=== PATIENT | male | born 1940 | race Caucasian/White ===

== ENCOUNTER 2020-02-29 14:38 | Emergency (ER) | payer MEDICARE, OTHER ==
--- NOTE | 2020-02-29 15:04 | ED ---
Head Injury HPI - General Chief complaint: Head Injury Stated complaint: Fall,Head Lac Time Seen by Provider: 02/29/20 14:46 Source: patient, family Mode of arrival: wheelchair Limitations: no limitations - History of Present Illness Initial comments: Patient is a 79-year-old male presenting to the emergency room with a chief complaint of head injury. Patient states he was sitting in the shower on a stool. Patient states he leaned forward to grab the soap when he lost his balance and fell to the floor, headfirst. Patient reports there is a laceration on the frontoparietal aspect of the head. Patient denies loss of consciousness. Denies any blood thinners. Denies any headaches, blurry vision, one-sided weakness or paresthesias. States his tetanus is not up-to-date. Denies any dizziness or lightheadedness at this time. Denies any chest pain or shortness of breath. Patient reports history of poor renal function. - Related Data Home Medications Medication Instructions Recorded Confirmed Beta-Carotene (Unknown Strength) 1 tab PO DAILY 02/29/20 02/29/20 Blood Pressure Med (Unknown 1 tab PO DAILY 02/29/20 02/29/20 Name/Strength) Fenofibrate (Unknown Strength) 1 tab PO DAILY 02/29/20 02/29/20 Irbesartan (Unknown Strength) 1 tab PO DAILY 02/29/20 02/29/20 Allergies/Adverse reactions: Allergies Allergy/AdvReac Type Severity Reaction Status Date / Time No Known Allergies Allergy Verified 02/29/20 16:10 Review of Systems ROS Statement: Those systems with pertinent positive or pertinent negative responses have been documented in the HPI. ROS Other: All systems not noted in ROS Statement are negative. Past Medical History Past Medical History: Hypertension, Osteoarthritis (OA) History of Any Multi-Drug Resistant Organisms: None Reported Past Surgical History: Orthopedic Surgery Additional Past Surgical History / Comment(s): L shoulder Past Psychological History: No Psychological Hx Reported Smoking Status: Never smoker Past Alcohol Use History: None Reported Past Drug Use History: None Reported General Exam Limitations: no limitations General appearance: alert, in no apparent distress Head exam: Present: normocephalic. Absent: atraumatic (5 cm laceration on the frontoparietal aspect of the head.), normal inspection, other (Negative Flores sign, hemotympanum, raccoon eyes.) Eye exam: Present: normal appearance, PERRL, EOMI. Absent: scleral icterus Pupils: Present: normal accommodation ENT exam: Present: normal exam, normal oropharynx, mucous membranes moist Neck exam: Present: normal inspection, full ROM. Absent: tenderness Respiratory exam: Present: normal lung sounds bilaterally. Absent: respiratory distress, wheezes, rales Cardiovascular Exam: Present: regular rate, normal rhythm, normal heart sounds Extremities exam: Present: normal inspection, full ROM, normal capillary refill, other (+2 ulnar and radial pulses bilateral. Sensation intact in bilateral upper and lower extremities. +2 dorsalis pedis and posterior tibialis bilaterally.) Back exam: Present: normal inspection, full ROM. Absent: tenderness Neurological exam: Present: alert, oriented X3, CN II-XII intact Psychiatric exam: Present: normal affect, normal mood Skin exam: Present: warm, dry, intact, normal color Course Vital Signs 02/29/20 14:42 Temperature 97.8 F Pulse Rate 81 Respiratory 18 Rate Blood Pressure 157/93 O2 Sat by Pulse 97 Oximetry Procedures - Laceration Laceration #1 Consent Obtained: verbal consent Indication: laceration Site: scalp Size (cm): 6 Description: linear, clean Depth: simple, single layer Sedation/Analgesia: none Pre-repair: irrigated extensively, deep structures intact Type of Sutures: other ([facility]) Size of Sutures: other ([facility]) Number of Sutures: 6 Technique: other ([facility]) Complications: pain Patient Tolerated Procedure: well, no complications Medical Decision Making - Medical Decision Making Patient is a 79-year-old male presenting to emergency Department with chief complaint of a head injury. Patient has a 6 cm laceration on the frontoparietal aspect. Laceration site was repaired with 6 [facility]. Patient advised to return to emergency department in 10-14 days for suture removal. CMP reveals poor renal function with BUN 30 and creatinine of 3. Patient does have history of poor renal function. Brain and C-spine CT reveals no acute fractures, dislocations, intracranial hemorrhage or midline shift. Patient is also had mild hematoma near the site of head trauma. Patient was given analgesia in the ED. Patient is set to see his primary care in 4 days. Return parameters were thoroughly discussed with patient was understanding and agreeable. Case discussed with physician. - Lab Data Result diagrams: 02/29/20 15:37 02/29/20 15:37 Lab Results 02/29/20 02/29/20 02/29/20 Range/Units 15:37 15:37 15:37 WBC 8.1 (3.8-10.6) k/uL RBC 4.33 (4.30-5.90) m/uL Hgb 13.5 (13.0-17.5) gm/dL Hct 41.7 (39.0-53.0) % MCV 96.1 (80.0-100.0) fL MCH 31.1 (25.0-35.0) pg MCHC 32.3 (31.0-37.0) g/dL RDW 13.2 (11.5-15.5) % Plt Count 235 (150-450) k/uL Neutrophils % 69 % Lymphocytes % 18 % Monocytes % 7 % Eosinophils % 5 % Basophils % 0 % Neutrophils # 5.6 (1.3-7.7) k/uL Lymphocytes # 1.4 (1.0-4.8) k/uL Monocytes # 0.5 (0-1.0) k/uL Eosinophils # 0.4 (0-0.7) k/uL Basophils # 0.0 (0-0.2) k/uL PT 12.0 (9.0-12.0) sec INR 1.2 H (<1.2) Sodium 135 L (137-145) mmol/L Potassium 4.3 (3.5-5.1) mmol/L Chloride 107 (98-107) mmol/L Carbon Dioxide 20 L (22-30) mmol/L Anion Gap 8 mmol/L BUN 32 H (9-20) mg/dL Creatinine 1.54 H (0.66-1.25) mg/dL Est GFR (CKD-EPI)AfAm 49 (>60 ml/min/1.73 sqM) Est GFR (CKD-EPI)NonAf 43 (>60 ml/min/1.73 sqM) Glucose 108 H (74-99) mg/dL Calcium 9.4 (8.4-10.2) mg/dL Total Bilirubin 0.4 (0.2-1.3) mg/dL AST 27 (17-59) U/L ALT 15 (4-49) U/L Alkaline Phosphatase 72 (38-126) U/L Total Protein 6.3 (6.3-8.2) g/dL Albumin 3.6 (3.5-5.0) g/dL Disposition Clinical Impression: Head injury, Laceration, Contusion of scalp, Hematoma of scalp Disposition: HOME SELF-CARE Condition: Stable Instructions (If sedation given, give patient instructions): Laceration (DC), Staple Care (ED) Additional Instructions: Return to emergency department in 10-14 days for suture removal. Follow-up with your primary care. Return to emergency department if symptoms worsen. Is patient prescribed a controlled substance at d/c from ED?: No Referrals: Eduard Jacobs MD [Primary Care Provider] - 1-2 days Time of Disposition: 16:25
[2020-02-29] MEDS ORDERED: DIPH,PERTUS(ACELL)TETVAC-LF 0.5 ML VIAL IM ONE (15:07)
[2020-02-29 15:53] LABS: Basophils % (A) 0 %; Eosinophils # (A) 0.4 k/uL (0-0.7); Eosinophils % (A) 5 %; HCT 41.7 % (39.0-53.0); HGB 13.5 gm/dL (13.0-17.5); Lymphocytes # (A) 1.4 k/uL (1.0-4.8); Lymphocytes % (A) 18 %; MCH 31.1 pg (25.0-35.0); MCHC 32.3 g/dL (31.0-37.0); MCV 96.1 fL (80.0-100.0); Mean Platelet Volume 8.3; Monocytes # (A) 0.5 k/uL (0-1.0); Monocytes % (A) 7 %; Neutrophils # (A) 5.6 k/uL (1.3-7.7); Neutrophils % (A) 69 %; Platelet Count 235 k/uL (150-450); RBC 4.33 m/uL (4.30-5.90); RDW 13.2 % (11.5-15.5); WBC 8.1 k/uL (3.8-10.6)
--- NOTE | 2020-02-29 15:53 | CT ---
EXAMINATION TYPE: CT brain mode mckeon con DATE OF EXAM: 02/29/2020 COMPARISON: None HISTORY: Fall with head laceration. Neck pain. Headache. CT DLP: 1587.2 mGycm Automated exposure control for dose reduction was used. There is cerebral cortical atrophy. There is no mass effect nor midline shift. There is no sign of in tracranial hemorrhage. The calvarium is intact. There is no evidence of cerebral edema. There is some right frontal scalp soft tissue swelling. There is moderately severe multilevel spondylotic changes in the cervical spine with hypertrophic spu rring of the endplates. The posterior elements are intact. Skull base is intact. Temporal bones appea r normal. There is no evidence of cervical spine fracture. IMPRESSION: Cerebral atrophy. No acute intracranial abnormality. Moderate multilevel cervical spondylotic changes. No fracture seen.
[2020-02-29 15:56] LABS: INR 1.2 (<1.2)
[2020-02-29 16:01] LABS: Albumin 3.6 g/dL (3.5-5.0); Calcium 9.4 mg/dL (8.4-10.2); Potassium 4.3 mmol/L (3.5-5.1); Total Bilirubin 0.4 mg/dL (0.2-1.3); Total Protein 6.3 g/dL (6.3-8.2)
[2020-02-29] MEDS ORDERED: ACET/COD 300 MG/30 MG STARTER PACK 6 TAB BTL PO STA (16:24)
[2020-02-29 16:43] VITALS: BP 163/78; PULSE 77; RESP 20; TEMP 98.2
== END 2020-02-29 16:35 | disposition home or self-care (01) ==
LOC: EC 14:38
DX: S01.01XA Laceration without foreign body of scalp, initial encounter (principal); Z23 Encounter for immunization; I10 Essential (primary) hypertension; Z79.899 Other long term (current) drug therapy; Z98.890 Other specified postprocedural states; W01.10XA Fall on same level from slipping, tripping and stumbling with subsequent striking against unspecified object, initial encounter; Y93.E1 Activity, personal bathing and showering; Y92.002 Bathroom of unspecified non-institutional (private) residence as the place of occurrence of the external cause
CPT/HCPCS: 12002; 36415; 70450; 72125; 80053; 85025; 85610; 90471; 90715; 99284

== ENCOUNTER → 2020-03-09 | Outpatient (CLI) | payer MEDICARE, OTHER ==
--- NOTE | 2020-03-09 08:32 | US ---
EXAMINATION TYPE: US abdomen complete DATE OF EXAM: 03/09/2020 COMPARISON: NONE CLINICAL HISTORY: R10.84 Generalized abdominal pain. Pain Exam limited due to body habitus EXAM MEASUREMENTS: Liver Length: 14.7 cm Gallbladder Wall: .2 cm CBD: .3 cm Spleen: 10.9 cm Right Kidney: 12 x 4.5 x 5.2 cm Left Kidney: 10.1 x 4.2 x 3.8 cm Pancreas: Obscured by bowel gas Liver: Increased attenuation Gallbladder: wnl Evidence for sonographic Brarios's sign: No CBD: wnl Spleen: wnl Right Kidney: wnl Left Kidney: wnl Upper IVC: wnl Abd Aorta: wnl The liver is homogenous. The intrahepatic portion of the IVC and proximal abdominal aorta are within normal limits. There is no evidence of cholelithiasis. Common bile duct is unremarkable. The visu alized portions of the pancreas are homogenous. The spleen is unremarkable. Kidneys are symmetric a nd free of hydronephrosis. No renal lesions are seen. IMPRESSION: No distinct abnormality appreciated.
--- NOTE | 2020-03-09 09:05 | XR ---
EXAMINATION TYPE: XR knee limited RT DATE OF EXAM: 03/09/2020 CLINICAL HISTORY: pain TECHNIQUE: Two views of the right knee are obtained. COMPARISON: None. FINDINGS: There is no acute fracture/dislocation. The tri-compartment joint spaces appear mildly na rrowed. Spur formation noted. Prepatellar soft tissue swelling noted. IMPRESSION: There is no acute fracture or dislocation.ICD 10 NO FRACTURE, INITIAL EVALUATION
== END | disposition home or self-care (01) ==
LOC: RADUSWWP 07:45
PROVIDERS: ATTEND Internal Medicine Geriatric Medicine
DX: M25.561 Pain in right knee (principal)
CPT/HCPCS: 76700

== ENCOUNTER → 2020-04-16 | Outpatient (CLI) | payer MEDICARE, OTHER ==
--- NOTE | 2020-04-17 07:28 | US ---
EXAMINATION TYPE: US venous doppler duplex LE RT DATE OF EXAM: 04/16/2020 4:17 PM COMPARISON: NONE CLINICAL HISTORY: M25.561 pain in RT knee. SIDE PERFORMED: Right TECHNIQUE: The lower extremity deep venous system is examined utilizing real time linear array sonog madeline with graded compression, doppler sonography and color-flow sonography. VESSELS IMAGED: External Iliac Vein (EIV) Common Femoral Vein Deep Femoral Vein Greater Saphenous Vein * Femoral Vein Popliteal Vein Small Saphenous Vein * Proximal Calf Veins (* superficial vessels) Right Leg: Negative for DVT Results phoned to Susan at Dr. Henao's office immediately following exam. IMPRESSION: Grayscale, color doppler, spectral doppler imaging performed of the deep veins of the lo wer extremities. There is normal flow, compressibility, vascular waveforms.
== END | disposition home or self-care (01) ==
LOC: RADUSWWP 15:44
PROVIDERS: ATTEND Orthopaedic Surgery
DX: M25.561 Pain in right knee (principal); M17.11 Unilateral primary osteoarthritis, right knee; I80.9 Phlebitis and thrombophlebitis of unspecified site

== ENCOUNTER → 2022-02-16 | Outpatient (CLI) | payer MEDICARE, OTHER ==
--- NOTE | 2022-02-16 15:17 | XR ---
EXAMINATION TYPE: XR shoulder complete RT DATE OF EXAM: 02/16/2022 CLINICAL HISTORY: pain TECHNIQUE: Three views of the right shoulder are obtained. COMPARISON: None FINDINGS: There is no acute fracture/dislocation evident. The acromioclavicular and glenohumeral charmaine int spaces appear moderately narrowed. The visualized ribs are intact and unremarkable. IMPRESSION: 1. There is no acute fracture or dislocation. ICD 10 NO FRACTURE, INITIAL EVALUATION
== END | disposition home or self-care (01) ==
LOC: RADXRMAIN 14:56
PROVIDERS: ATTEND Nurse Practitioner Gerontology
DX: M25.511 Pain in right shoulder (principal)

== ENCOUNTER 2022-07-01 13:32 | Emergency (ER) | payer MEDICARE, OTHER ==
[2022-07-01 14:56] VITALS: RESP 20
--- NOTE | 2022-07-01 15:30 | XR ---
EXAMINATION TYPE: XR elbow complete RT DATE OF EXAM: 07/01/2022 CLINICAL HISTORY: pain TECHNIQUE: Frontal, lateral and oblique images of the right elbow are obtained. COMPARISON: None. FINDINGS: There is soft tissue swelling in the region of the posterior elbow. Bony fragment is noted which is felt to reflect a fractured olecranon spur. Correlate clinically point tenderness. No pathol ogic anterior or posterior fat pad. The remaining osseous structures are intact. IMPRESSION: Bony fragment is noted which is felt to reflect a fractured olecranon spur. Correlate cl inically point tenderness.
[2022-07-01] MEDS ORDERED: HYDROcodone/APAP 5-325MG 1 EACH TAB PO STA (16:58)
[2022-07-01] MEDS ORDERED: DIPH,PERTUS(ACELL)TETVAC-LF 0.5 ML VIAL IM ONE (17:02)
--- NOTE | 2022-07-01 17:04 | ED ---
Upper Extremity HPI - General Chief Complaint: Extremity Injury, Upper Stated Complaint: R elbow pain-sent by PCP Time Seen by Provider: 07/01/22 16:33 Source: patient, family Mode of arrival: ambulatory Limitations: no limitations - History of Present Illness Initial Comments: 81-year-old male presents to the emergency room, ambulatory with cane, compla ining of right elbow pain. Patient states that he fell last week and has had increased pain and swelling. Seen the primary care doctor today who recommended he come to the emergency room for evaluation. MD Complaint: Injury to:: right, elbow -: week(s) (1) Handedness: right Place: outdoors Context: fall Associated Symptoms: denies other symptoms - Related Data Home Medications Medication Instructions Recorded Confirmed Beta-Carotene (Unknown Strength) 1 tab PO DAILY 02/29/20 02/29/20 Blood Pressure Med (Unknown 1 tab PO DAILY 02/29/20 02/29/20 Name/Strength) Fenofibrate (Unknown Strength) 1 tab PO DAILY 02/29/20 02/29/20 Irbesartan (Unknown Strength) 1 tab PO DAILY 02/29/20 02/29/20 Previous Rx's Medication Instructions Recorded Cephalexin [Keflex] 500 mg PO Q6HR 7 Days #28 cap 07/01/22 HYDROcodone/APAP 5-325MG [[facility] 1 tab PO Q6HR PRN 3 Days #12 tab 07/01/22 5-325] Allergies Allergy/AdvReac Type Severity Reaction Status Date / Time No Known Allergies Allergy Verified 07/01/22 14:56 Review of Systems ROS Statement: Those systems with pertinent positive or pertinent negative responses have been documented in the HPI. ROS Other: All systems not noted in ROS Statement are negative. Past Medical History Past Medical History: Hypertension, Osteoarthritis (OA) History of Any Multi-Drug Resistant Organisms: None Reported Past Surgical History: Orthopedic Surgery Additional Past Surgical History / Comment(s): L shoulder Past Psychological History: No Psychological Hx Reported Smoking Status: Never smoker Past Alcohol Use History: None Reported Past Drug Use History: None Reported General Exam Limitations: no limitations General appearance: alert, in no apparent distress Head exam: Present: atraumatic Neck exam: Absent: meningismus Respiratory exam: Absent: respiratory distress, accessory muscle use Cardiovascular Exam: Present: regular rate Extremities exam: Present: normal capillary refill Right Elbow exam: Present: full ROM, tenderness, swelling, abrasion, ecchymosis, erythema, effusion, tenderness over radial head Forearm Wrist exam: Present: full ROM. Absent: tenderness, swelling Hand Wrist exam: Present: full ROM. Absent: tenderness, swelling Neuro motor exam: Present: wrist extension intact Neurosensory exam: Present: radial nerve intact, ulnar nerve intact, median nerve intact Vascular: Present: normal capillary refill, radial pulse. Absent: vascular compromise Neurological exam: Present: alert, oriented X3, normal gait (cane) Psychiatric exam: Present: normal affect, normal mood Skin exam: Present: warm, dry. Absent: cyanosis, diaphoretic Course Vital Signs 07/01/22 07/01/22 14:54 18:02 Temperature 98.1 F 98.8 F Pulse Rate 87 105 H Respiratory 20 20 Rate Blood Pressure 140/74 140/89 O2 Sat by Pulse 97 98 Oximetry Medical Decision Making - Medical Decision Making No leukocytosis. No fevers. This fall happened one week ago. He has had full range of motion. There is small amount of clear yellow drainage from abrasion of the right elbow, sent for culture. X-ray shows a chip fracture of the olecranon likely from olecranon spur. Patient was put on Keflex. Placed in a sling and given a referral to orthopedics. Patient was offered admission and prefers to be discharged home to outpatient care. Case discussed with Dr. Ruiz. - Lab Data Result diagrams: 07/01/22 18:01 07/01/22 18:01 Lab Results 07/01/22 07/01/22 Range/Units 18:01 18:01 WBC 10.0 (3.8-10.6) k/uL RBC 3.89 L (4.30-5.90) m/uL Hgb 12.6 L (13.0-17.5) gm/dL Hct 38.4 L (39.0-53.0) % MCV 98.8 (80.0-100.0) fL MCH 32.5 (25.0-35.0) pg MCHC 32.9 (31.0-37.0) g/dL RDW 12.3 (11.5-15.5) % Plt Count 283 (150-450) k/uL MPV 8.2 Neutrophils % 75 % Lymphocytes % 14 % Monocytes % 7 % Eosinophils % 2 % Basophils % 0 % Neutrophils # 7.5 (1.3-7.7) k/uL Lymphocytes # 1.4 (1.0-4.8) k/uL Monocytes # 0.7 (0-1.0) k/uL Eosinophils # 0.2 (0-0.7) k/uL Basophils # 0.0 (0-0.2) k/uL Sodium 139 (137-145) mmol/L Potassium 4.5 (3.5-5.1) mmol/L Chloride 102 (98-107) mmol/L Carbon Dioxide 24 (22-30) mmol/L Anion Gap 13 mmol/L BUN 29 H (9-20) mg/dL Creatinine 1.62 H (0.66-1.25) mg/dL Est GFR (CKD-EPI)AfAm 46 (>60 ml/min/1.73 sqM) Est GFR (CKD-EPI)NonAf 39 (>60 ml/min/1.73 sqM) Glucose 126 H (74-99) mg/dL Calcium 9.3 (8.4-10.2) mg/dL Disposition Clinical Impression: Olecranon fracture Disposition: HOME SELF-CARE Condition: Good Instructions (If sedation given, give patient instructions): Elbow Fracture (ED) Additional Instructions: Take antibiotics as prescribed and follow-up with orthopedics next week. Return to the emergency room with any new or concerning symptoms including increased pain, fevers or inability to move joint. Prescriptions: Cephalexin [Keflex] 500 mg PO Q6HR 7 Days #28 cap HYDROcodone/APAP 5-325MG [[facility] 5-325] 1 tab PO Q6HR PRN 3 Days #12 tab PRN Reason: Pain Is patient prescribed a controlled substance at d/c from ED?: Yes When asked, does pt state using other controlled substances?: No If prescribed controlled substance>3 days was MAPS reviewed?: Prescribed <3 Days If opioid is for acute pain is fill amount 7 days or less?: Yes If Rx opioid, was Start Talking consent form obtained?: No Referrals: Eduard Jacobs MD [Primary Care Provider] - 1-2 days Elisa Martinez DO [Doctor of Osteopathic Medicine] - 1-2 days Time of Disposition: 18:44
[2022-07-01 18:03] VITALS: TEMP 98.8
[2022-07-01 18:15] LABS: Basophils % (A) 0 %; Eosinophils # (A) 0.2 k/uL (0-0.7); Eosinophils % (A) 2 %; HCT 38.4 % (39.0-53.0); HGB 12.6 gm/dL (13.0-17.5); Lymphocytes # (A) 1.4 k/uL (1.0-4.8); Lymphocytes % (A) 14 %; MCH 32.5 pg (25.0-35.0); MCHC 32.9 g/dL (31.0-37.0); MCV 98.8 fL (80.0-100.0); Mean Platelet Volume 8.2; Monocytes # (A) 0.7 k/uL (0-1.0); Monocytes % (A) 7 %; Neutrophils # (A) 7.5 k/uL (1.3-7.7); Neutrophils % (A) 75 %; Platelet Count 283 k/uL (150-450); RBC 3.89 m/uL (4.30-5.90); RDW 12.3 % (11.5-15.5)
[2022-07-01 18:23] LABS: Calcium 9.3 mg/dL (8.4-10.2); Potassium 4.5 mmol/L (3.5-5.1)
[2022-07-01 19:24] VITALS: BP 145/86; PULSE 86
== END 2022-07-01 19:24 | disposition home or self-care (01) ==
LOC: EC 13:32
DX: S52.021A Displaced fracture of olecranon process without intraarticular extension of right ulna, initial encounter for closed fracture (principal); Z23 Encounter for immunization; I10 Essential (primary) hypertension; M19.90 Unspecified osteoarthritis, unspecified site; Z79.899 Other long term (current) drug therapy; W18.30XA Fall on same level, unspecified, initial encounter
CPT/HCPCS: 36415; 80048; 85025; 87040; 87070; 87205; 73080; 90715; 99284; 96374; 90471; J0696

== ENCOUNTER → 2024-07-01 | Outpatient (CLI) | payer MEDICARE, OTHER ==
--- NOTE | 2024-07-01 11:09 | XR ---
EXAMINATION TYPE: XR shoulder complete LT DATE OF EXAM: 07/01/2024 10:18 AM COMPARISON: None. CLINICAL INDICATION: Male, 83 years old with history of M25.512 Pain in Left shoulder, following fall TECHNIQUE: XR shoulder complete LT view(s) obtained. FINDINGS: The humeral head articulates with the glenoid. Glenohumeral joint space is narrowed. Humeral head spu rring is noted. There is narrowing of the acromiohumeral joint space. The acromio-clavicular junction is normal. No acute fractures or dislocations are evident. A follow up study can be performed 7-10 days from acute trauma for continued pain. MRI can be perfor med if soft tissue evaluation would be of benefit. IMPRESSION: 1. Moderately advanced degenerative changes at the glenohumeral junction. 2. Rotator cuff tear cannot be excluded. [facility], Workstation: 3, 07/01/2024 11:07 AM
== END | disposition home or self-care (01) ==
LOC: RADXRMAIN 10:07
PROVIDERS: ATTEND Internal Medicine Geriatric Medicine
DX: M19.012 Primary osteoarthritis, left shoulder (principal)

== ENCOUNTER → 2024-07-04 | Outpatient (CLI) | payer MEDICARE, OTHER ==
--- NOTE | 2024-07-04 16:28 | XR ---
EXAMINATION TYPE: XR elbow complete LT DATE OF EXAM: 07/04/2024 3:45 PM COMPARISON: None. CLINICAL INDICATION: Male, 83 years old with history of M79.602 PAIN IN LEFT ARM M25.522 PAIN IN LEFT ELBOW, TECHNIQUE: XR elbow complete LT view(s) obtained. FINDINGS: Radius aligns normally with the humerus. Anterior fat pad is mild elevation. Minimal elevation physical therapist aide ior fat pad is present. An occult fracture should be considered. An actual fracture is not identified . Follow-up exam 7-10 days from acute trauma can be performed for additional evaluation IMPRESSION: 1. Occult fracture is within the differential. Fracture line however is not identified. Treatment an d follow-up is recommended. [facility], , 07/04/2024 4:25 PM
--- NOTE | 2024-07-04 16:30 | XR ---
EXAMINATION TYPE: XR forearm LT DATE OF EXAM: 07/04/2024 3:45 PM COMPARISON: None. CLINICAL INDICATION: Male, 83 years old with history of M79.602 PAIN IN LEFT ARM M25.522 PAIN IN LEFT ELBOW, TECHNIQUE: XR forearm LT view(s) obtained. FINDINGS: No acute fractures or dislocations are evident. Joint spaces appear preserved. Soft tissues appear wi thin normal limits. Please also see left elbow dictations IMPRESSION: 1. Suspected occult fracture with nonvisualized fracture line at the elbow. 2. No additional areas suspicious for fracture identified [facility], , 07/04/2024 4:27 PM
== END | disposition home or self-care (01) ==
LOC: RADXRMAIN 14:59
PROVIDERS: ATTEND Internal Medicine Geriatric Medicine
DX: S42.402A Unspecified fracture of lower end of left humerus, initial encounter for closed fracture (principal); M79.602 Pain in left arm

== ENCOUNTER → 2025-02-27 | Outpatient (CLI) | payer MEDICARE, OTHER ==
--- NOTE | 2025-02-27 15:43 | US ---
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 1.3x2.0x1.2cm 2. 1.3x1.0x1.1cm Left Kidney: Anechoic area seen: 2.6x2.7x2.2cm Bladder: wnl Bilateral Jets seen: no IMPRESSION: 1. No renal calcification or hydronephrosis. 2. No cortical thinning suggests medical renal disease. 3. 1.3 x 1.0 cm right cortical mass is not consistent with a simple cyst and CT attention kidneys is recommended. 4. 2.7 cm left renal cyst. [facility], Workstation: [email or web address] 02/27/2025 3:40 PM
== END | disposition home or self-care (01) ==
LOC: RADUSWWP 14:47
PROVIDERS: ATTEND Internal Medicine Geriatric Medicine
DX: N18.32 Chronic kidney disease, stage 3b (principal); N28.1 Cyst of kidney, acquired
CPT/HCPCS: 76770

== ENCOUNTER → 2025-03-11 | Outpatient (CLI) | payer MEDICARE, OTHER ==
--- NOTE | 2025-03-11 13:58 | CT ---
EXAMINATION TYPE: CT abdomen pelvis wo con DATE OF EXAM: 03/11/2025 COMPARISON: None CLINICAL INDICATION: Male, 84 years old with history of R93.429 ABN FIND OF KIDNEY; [facility], abnormal kid sanya US TECHNIQUE: CT scan of the abdomen and pelvis is performed without oral or IV contrast. CT DLP: [address] CTDI: mGy Automated exposure control for dose reduction was used. FINDINGS: Within the limitations of a non-contrast study, the following observations are made. The lungs are clear. Gallbladder is normal and there is no gallstone, wall thickening, pericholecystic fluid or distention . There is no biliary ductal dilatation. There is no organomegaly of the liver, pancreas, spleen or adrenal glands. There are no renal calcifications or hydronephrosis. There are multiple small hyperdense renal cysts, 2 on the right and possibly 2 on the left. The caliber of the abdominal aorta is normal and there is no retroperitoneal adenopathy or hemorrhage . The bowel loops are normal in caliber is no evidence of obstruction. No inflammatory changes are iden tified in the mesentery and there is no free intraperitoneal air or fluid. There is no pelvic mass, free fluid, abscess or adenopathy. There is mild diverticulosis of the colon without CT evidence of diverticulitis. The osseous structures and soft tissues are unremarkable. IMPRESSION: Small hyperdense cysts of the kidneys. MRI of the kidneys is recommended for confirmation. [facility], , 03/11/2025 1:55 PM
== END | disposition home or self-care (01) ==
LOC: RADCTMAIN 13:23
PROVIDERS: ATTEND Internal Medicine Geriatric Medicine
DX: N28.1 Cyst of kidney, acquired (principal); R93.429 Abnormal radiologic findings on diagnostic imaging of unspecified kidney
CPT/HCPCS: 74176

== ENCOUNTER 2025-03-17 16:35 | Emergency (ER) | payer MEDICARE, OTHER ==
[2025-03-17 16:44] VITALS: TEMP 98.1
--- NOTE | 2025-03-17 17:11 | ED ---
General Adult HPI - General Chief complaint: Fall Stated complaint: Fall/L shoulder injury Time Seen by Provider: 03/17/25 16:48 Source: patient, RN notes reviewed Mode of arrival: ambulatory Limitations: no limitations - History of Present Illness Initial comments: This is an 84-year-old male presenting to the emergency department with his for complaints of left shoulder pain after a fall that occurred this morning. Patient states that he was showering in a Jacuzzi type bathtub when he went to get out fell onto his left shoulder. He is unaware if he hit his head however denies loss of consciousness. His states that she helped him get up after the fall. Currently patient states that he has a mild headache and most of the pain is located in his left shoulder with radiation into his back and left ribs. He denies difficulty in breathing. Denies blood thinner use. - Related Data Home Medications Medication Instructions Recorded Confirmed Atorvastatin [Lipitor] 10 mg PO DAILY 03/17/25 03/17/25 Buprenorphine [Buprenorphine 1 patch TRANSDERM TH 03/17/25 03/17/25 10MCG/HR] Fenofibrate Nanocrystallized 145 mg PO DAILY 03/17/25 03/17/25 [Fenofibrate] Furosemide [Lasix] 40 mg PO DAILY 03/17/25 03/17/25 Gabapentin 300 mg PO TID 03/17/25 03/17/25 Irbesartan 300 mg PO DAILY 03/17/25 03/17/25 Tamsulosin [Flomax] 0.4 mg PO DAILY 03/17/25 03/17/25 amLODIPine [Norvasc] 5 mg PO DAILY 03/17/25 03/17/25 Allergies Allergy/AdvReac Type Severity Reaction Status Date / Time No Known Allergies Allergy Verified 03/17/25 17:07 Review of Systems ROS Statement: Those systems with pertinent positive or pertinent negative responses have been documented in the HPI. ROS Other: All systems not noted in ROS Statement are negative. Past Medical History Past Medical History: Hearing Disorder / Deafness, Hypertension, Osteoarthritis (OA) History of Any Multi-Drug Resistant Organisms: None Reported Past Surgical History: Orthopedic Surgery Additional Past Surgical History / Comment(s): L shoulder Past Psychological History: No Psychological Hx Reported Smoking Status: Never smoker Past Alcohol Use History: None Reported Past Drug Use History: None Reported General Exam Limitations: no limitations Head exam: Present: atraumatic, normocephalic, normal inspection ENT exam: Present: normal exam, mucous membranes moist Neck exam: Present: normal inspection. Absent: tenderness, meningismus, lymphadenopathy Respiratory exam: Present: normal lung sounds bilaterally, chest wall tenderness (anterior left). Absent: respiratory distress, wheezes, rales, rhonchi, stridor Cardiovascular Exam: Present: regular rate, normal rhythm, normal heart sounds. Absent: systolic murmur, diastolic murmur, rubs, gallop, clicks GI/Abdominal exam: Present: soft, normal bowel sounds. Absent: distended, tenderness, guarding, rebound, rigid Left Shoulder Exam: Present: tenderness. Absent: swelling, ecchymosis, deformity, crepitus Upper Arm exam: Present: full ROM Vascular: Present: normal capillary refill. Absent: vascular compromise Back exam: Present: normal inspection, tenderness (left posterior ribs) Neurological exam: Present: alert, oriented X3, CN II-XII intact Course Vital Signs 03/17/25 03/17/25 16:40 19:05 Temperature 98.1 F Pulse Rate 88 85 Respiratory 18 20 Rate Blood Pressure 155/81 128/77 O2 Sat by Pulse 99 95 Oximetry Medical Decision Making - Medical Decision Making Was pt. sent in by a medical professional or institution (, PA, BALLISTICS TESTER, urgent care, hospital, or long-term...) When possible be specific @ -No Did you speak to anyone other than the patient for history (EMS, parent, family, police, friend...)? What history was obtained from this source @ -No Did you review nursing and triage notes (agree or disagree)? Why? @ -I reviewed and agree with nursing and triage notes Were old charts reviewed (outside hosp., previous admission, EMS record, old EKG, old radiological studies, urgent care reports/EKG's, long-term records)? Report findings @ -No old charts were reviewed Differential Diagnosis (chest pain, altered mental status, abdominal pain women, abdominal pain men, vaginal bleeding, weakness, fever, dyspnea, syncope, headache, dizziness, GI bleed, back pain, seizure, CVA, palpatations, mental health, musculoskeletal)? @ -Shoulder fracture, shoulder sprain, rib fracture, pulmonary contusion, intracranial hemorrhage, concussion, this list is not all inclusive EKG interpreted by me (3pts min.). @ -None X-rays interpreted by me (1pt min.). @ -X-ray of the left ribs with PA chest no acute osseous pathology. X-ray of the left shoulder reveals no acute osseous pathology with left shoulder arthropathy CT interpreted by me (1pt min.). @ - CT of the brain and C-spine without contrast reveals no acute intracranial process, region of vasogenic edema primarily within the right occipital lobe concerning for underlying mass recommend evaluation with MRI with no cervical spine fracture U/S interpreted by me (1pt. min.). @ -None done What testing was considered but not performed or refused? (CT, X-rays, U/S, labs)? Why? @ -None What meds were considered but not given or refused? Why? @ -None Did you discuss the management of the patient with other professionals (professionals i.e. , PA, BALLISTICS TESTER, lab, RT, psych nurse, social media project manager, mainframe developer, teacher, control officer, adult protective caseworker)? Give summary @ -No Was smoking cessation discussed for >3mins.? @ -No Was critical care preformed (if so, how long)? @ -No Were there social determinants of health that impacted care today? How? (Homelessness, low income, unemployed, alcoholism, drug addiction, transportation, low edu. Level, literacy, decrease access to med. care, m[facility], r ehab)? @ -No Was there de-escalation of care discussed even if they declined (Discuss DNR or withdrawal of care, Hospice)? DNR status @ -No What co-morbidities impacted this encounter? (DM, HTN, Smoking, COPD, CAD, Cancer, CVA, ARF, Chemo, Hep., AIDS, mental health diagnosis, sleep apnea, morbid obesity)? @ -None Was patient admitted / discharged? Hospital course, mention meds given and route, prescriptions, significant lab abnormalities, going to OR and other pertinent info. @ -Discharge. 84-year-old male presenting with after a fall. Overall patient is well-appearing and no signs of distress. Patient is noted to have tenderness to the left shoulder that is worse with range of motion and palpation. Left upper extremity is neurovascularly intact. He is provided with morphine for pain control. X-ray imaging of the left ribs, PA chest, shoulder revealed no acute pathology. CT imaging of the brain and C-spine reveals no acute intracranial or cervical spine process however there is an incidental finding noting a region of vasogenic edema primarily within the right occipital lobe. I spoke with the patient at bedside who denies history of brain cancer. Patient has denied headaches and at bedside states that patient has been acting appropriately at home with no confusion or altered mental status. Discussed the urgency with the patient to follow-up with his primary care provider in the next 1 to 3 days for further evaluation of incidental finding and recommend MRI with and without contrast. Patient is also placed in a sling due to pain of his left shoulder and instructed to follow-up with [facility] specialist for further evaluation. Return parameters discussed. Case discussed with my attending Dr. Swartz Undiagnosed new problem with uncertain prognosis? @ -No Drug Therapy requiring intensive monitoring for toxicity (Heparin, Nitro, Insulin, Cardizem)? @ -No Were any procedures done? @ -No Diagnosis/symptom? @ -Vasogenic edema of the right occipital lobe, fall, shoulder sprain Acute, or Chronic, or Acute on Chronic? @ -Acute Uncomplicated (without systemic symptoms) or Complicated (systemic symptoms)? @ -Uncomplicated Side effects of treatment? @ -No Exacerbation, Progression, or Severe Exacerbation? @ -No Poses a threat to life or bodily function? How? (Chest pain, [place], [place], pneumonia, PE, COPD, DKA, ARF, appy, cholecystitis, CVA, Diverticulitis, Homicidal, Suicidal, threat to staff... and all critical care pts) @ -No Disposition Clinical Impression: Fall, Sprain of shoulder, left, Vasogenic brain edema Disposition: HOME SELF-CARE Condition: Good Instructions (If sedation given, give patient instructions): Fall Prevention for Older Adults (ED) Additional Instructions: Please return to the Emergency Department if symptoms worsen or any other concerns. Continue to take Tylenol and Motrin as needed for pain relief. It is recommended that you follow-up with your primary care provider within the next 1 to 2 days for follow-up of CT brain findings revealing an area of the right occipital lobe vasogenic edema Is patient prescribed a controlled substance at d/c from ED?: No Referrals: Eduard Jaocbs MD [Primary Care Provider] - 1-2 days Helene Lino [Doctor of Osteopathic Medicine] - 1-2 days Time of Disposition: 18:13
[2025-03-17] MEDS: MORPHINE SULFATE 4 MG/ML SYRINGE IM STA (17:42)
--- NOTE | 2025-03-17 17:53 | XR ---
EXAMINATION TYPE: XR shoulder complete LT DATE OF EXAM: 03/17/2025 5:29 PM INDICATION: Patient age:Male; 84 years old; Reason for study: fall, pain; pain COMPARISON: Left shoulder radiograph 07/01/2024 TECHNIQUE: The left shoulder was examined in AP, internally rotated and scapular Y projections. . FINDINGS: Poor positioning limits evaluation. Diffuse bone demineralization with limits evaluation. No acute fracture. No definitive dislocation. A therosclerotic calcification of the aortic arch. Degenerative changes of the glenohumeral joint. The remaining portions of the visualized chest are unremarkable. IMPRESSION: 1. No acute osseous pathology. 2. Left shoulder arthropathy. [facility], , 03/17/2025 5:51 PM
--- NOTE | 2025-03-17 17:54 | XR ---
EXAMINATION TYPE: XR ribs LT w pa chest xray DATE OF EXAM: 03/17/2025 5:30 PM INDICATION: Patient age:Male; 84 years old; Reason for study: fall, pain; PHH. pain COMPARISON: None TECHNIQUE: Frontal and oblique views of the left ribs with additional PA chest radiograph. FINDINGS: The ribs have a normal appearance. No evidence of fracture. Overall, the lungs are clear. Atherosclerotic desiccation of the aorta. The cardiac silhouette is mildly enlarged in size. The re maining osseous structures are intact. IMPRESSION: No acute osseous pathology. [facility], , 03/17/2025 5:52 PM
--- NOTE | 2025-03-17 18:06 | CT ---
EXAMINATION TYPE: CT brain cspine wo con CT DLP: 1595.2 mGycm, Automated exposure control for dose reduction was used. DATE OF EXAM: 03/17/2025 5:44 PM COMPARISON: CT brain C-spine 02/29/2020. CLINICAL INDICATION:Male, 84 years old with history of fall in shower, LEONARDO; Pt c/o slip and fall with left shoulder injury in the bathtub, pain TECHNIQUE: Brain: Multiple axial CT images of the brain were obtained without IV contrast. Cspine: Axial CT images from the skull base to the inferior aspect of T2 we obtained without intraven ous contrast. Coronal and sagittal reformatted images were also reviewed. FINDINGS: Brain: Extra-axial spaces: No abnormal extra-axial fluid collections. Ventricular system: Within normal limits Cerebral parenchyma: Mild cerebral atrophy. No acute intraparenchymal hemorrhage or mass effect. Reg ion of low attenuation with preservation the suarez-white matter junction within the right occipital lo be. There is effacement of the peripheral sulci. The suarez-white junction is well differentiated. Cerebellum: Unremarkable. Mass effect: No evidence of midline shift. Intracranial vasculature: Atherosclerotic calcifications of the intracranial vessels. Soft tissues: Normal. Calvarium/osseous structures: No depressed skull fracture. Paranasal sinuses and mastoid air cells: The mastoid air cells are clear. Mild mucosal thickening in the inferior right maxillary sinus. The remaining paranasal sinuses are clear. 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 Visualized orbits: Orbital contents are intact. Cervical spine: Fracture: None. Osseous structures: Multilevel disc space narrowing with endplate sclerosis and anterior osteophytosi s. Fusion of the right C2-C3 facet joint. Vertebral alignment: Degenerative grade 1 anterolisthesis of C2 on C3. Spinal canal/Neural Foramina: Disc osteophyte complexes at C2-C3, C5-C6, C6-C7 with at least mild spi nal canal stenosis. Facet joint uncovertebral joint arthropathy scattered throughout the cervical spi ne with varying degrees of neural foraminal stenosis. Neck soft tissues: Prevertebral soft tissues are within normal limits. Other: The airway is patent. The lung apices are clear. Mild bilateral carotid bulb calcifications. IMPRESSION: 1. No acute intracranial process. 2. Region of vasogenic edema primarily within the right occipital lobe concerning for underlying mas s. Further evaluation with MRI with and without IV contrast is recommended. 3. No evidence of cervical spine fracture. 4. Moderate to severe multilevel degenerative disc disease. Findings communicated to Dr. Fabiana Pan, PAC on 03/17/2025 6:[address] Cesar Cota . [facility], , 03/17/2025 6:04 PM
[2025-03-17 19:07] VITALS: BP 128/77; PULSE 85; RESP 20
== END 2025-03-17 19:07 | disposition home or self-care (01) ==
LOC: EC 16:35
DX: S43.402A Unspecified sprain of left shoulder joint, initial encounter (principal); G93.6 Cerebral edema; W19.XXXA Unspecified fall, initial encounter
CPT/HCPCS: 71101; 73030; 72125; 70450; 99284; 96372; J2270

== ENCOUNTER → 2025-03-20 | Outpatient (CLI) | payer MEDICARE, OTHER ==
--- NOTE | 2025-03-21 10:29 | MR ---
EXAMINATION TYPE: MR kidney wo/w con DATE OF EXAM: 03/20/2025 2:48 PM COMPARISON: CT scan abdomen from03/09/2025 CLINICAL INDICATION: Male, 84 years old with history of N18.32 CHRONIC KIDNEY DISEASE, STAGE 3B; PHH, Abnormal US and CT, Chronic kidney disease stage 3b TECHNIQUE: Multiplanar multi-sequence imaging was performed without contrast. Post contrast imaging was performed. Post IV contrast subtraction images were also submitted for review. IV Contrast: 11 mL Gadobutrol FINDINGS: LOWER CHEST: No gross irregularity. ABDOMEN Liver: No evidence for hepatic steatosis or cirrhosis. Signal dropout on chemical shift in phase imag ing. Gallbladder and Bile ducts: No evidence for ductal dilation, or biliary stricture or evidence of chol edocholithiasis. The gallbladder is within normal limits. Pancreas: No ductal dilation. No evidence for solid mass. Spleen: Normal for size. Signal dropout on chemical shift in phase imaging. Adrenal glands: Unremarkable. Kidneys: Multiple high T2 signal bilateral simple appearing renal cyst measuring up to 26 mm on the l eft andr 11 mm on the right. There is multiple peripelvic renal cysts bilaterally which are high T2 s ignal. Right renal cortical low T2/high T1 signal 16 mm cyst. No suspicious solid renal neoplasms. Left renal cortical height T1 signal low T2 signal cyst measuring 21 mm. Few other scattered smaller bilateral intrinsic high T1 signal cysts. Bilateral intrinsic high T1 signal cysts do not demonstrate postcontrast enhancement. Mild misregistr ation artifact of the renal cysts on subtraction imaging. These cysts are most favored represent hemo rrhagic/proteinaceous cysts and simple appearing renal cortical cysts and peripelvic renal cysts bila terally. No evidence for obstructive uropathy. No suspicious renal masses. Stomach and Bowel: No evidence for bowel wall thickening or evidence for obstruction. Retroperitoneum/Peritoneum: No evidence of pneumoperitoneum or free fluid. Vasculature: No aortic aneurysm. Musculoskeletal: The osseous structures appear intact. Lymph Nodes: No gross evidence for lymphadenopathy. Abdominal wall: Unremarkable. IMPRESSION: 1. No evidence for acute process. 2. Bilateral Bosniak type I and type II equivalent renal cysts. 3. Iron deposition in the liver and spleen. [facility], , 03/21/2025 10:27 AM
== END | disposition home or self-care (01) ==
LOC: RADMRIMAIN 13:34
PROVIDERS: ATTEND Internal Medicine Geriatric Medicine
DX: N18.32 Chronic kidney disease, stage 3b (principal); N28.1 Cyst of kidney, acquired
CPT/HCPCS: 74183; A9585

== ENCOUNTER → 2025-03-26 | Outpatient (CLI) | payer MEDICARE, OTHER ==
--- NOTE | 2025-03-26 12:09 | MR ---
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 COMPARISON: CT brain C-spine 03/17/2025, 02/29/2020. TECHNIQUE: Multi planar, multi sequence imaging was performed through the brain. The patient was then given 10 cc of Gadobutrol intravenously and multi planar, T1 fat-saturation images were obtained. FINDINGS: Age-appropriate mild diffuse cerebral volume loss. Diffusion-weighted imaging shows no evidence of re stricted diffusion to suggest acute/subacute infarct. Large region of FLAIR hyperintense signal vasog enic edema primarily within the right occipital lobe with extension into the right parietal lobe. Thi s results in effacement of the peripheral sulci and some effacement of the posterior horn of the righ t lateral ventricle. No evidence for hydrocephalus. No midline shift. Within this region of vasogenic edema in the right occipital lobe is a heterogenous enhancing mass measuring 4.3 x 1.9 x 3.9 cm in A P, TV, and CC dimensions (series 701, image 74). There is associated restricted diffusion. No other s uspicious enhancing lesions. Intracranial arterial flow voids are maintained. Midline structures show no abnormality. Few areas of high T2/FLAIR signal intensity are seen within the periventricular and subcortical white matter without enhancement. The susceptibility weighted images demonstrate multiple foci of blooming artifact within the right occipital lobe lesion. Impression with microhemorrhage. N o other regions of microhemorrhages identified. The bone marrow signal is within normal limits. The paranasal sinuses and globes are unremarkable. T race left mastoid effusion. IMPRESSION: 1. Enhancing large right occipital lobe mass measuring up to 4.3 cm. There is prominent surrounding vasogenic edema extending into the right parietal lobe. No other suspicious enhancing lesions identif ied. No midline shift. Evidence of microhemorrhage within the mass. This is highly concerning for neto rosangela brain tumor such as a glioblastoma versus metastasis. 2. No evidence of acute/subacute infarct. 3. Nonspecific white matter changes, likely related to small vessel ischemic disease. 4. Trace left mastoid effusion. A [place] level critical message alert has been initiated for Eduard Jacobs MD via the [employer] Critical Results System on 03/26/2025 12:06 PM. This message alert has been sent to Eduard Jacobs MD via the preferences provided by the clinician for the receipt of Radiology Critical Findings. [facility] age ID [id number]. [facility], , 03/26/2025 12:07 PM
== END | disposition home or self-care (01) ==
LOC: RADMRIMAIN 10:30
PROVIDERS: ATTEND Internal Medicine Geriatric Medicine
DX: C71.8 Malignant neoplasm of overlapping sites of brain (principal); R90.82 White matter disease, unspecified; R60.0 Localized edema; H74.8X2 Other specified disorders of left middle ear and mastoid
CPT/HCPCS: 70553; A9585